=== PATIENT | female | born 1985 | race Caucasian/White ===

== ENCOUNTER → 2018-05-22 11:14 | Outpatient (CLI) | payer OTHER, SELFPAY ==
[2018-05-22 15:28] LABS: Absolute Lymphocyte Count 2.14 X10^3/ul (0.83-4.51); Absolute Neutrophil Count 4.7 X10^3/uL (2.0-7.7); Basophil# 0.01 X10^3/uL; Basophil% 0.1 % (0-1); Eosinophil# 0.08 X10^3/uL; Eosinophils% 1.1 % (0-5); Hematocrit 39.5 % (37-47); Hemoglobin 12.4 g/dl (12.0-15.0); Lymphocyte # 2.14 X10^3/ul (4.0); Lymphocyte % 29.6 % (19-41); Mean Corp Hgb Conc 31.4 g/gl (32-36); Mean Corpuscular Hgb 25.5 pg (27.0-32.0); Mean Corpuscular Volume 81.1 fL (81-99); Mean Platelet Vol. 10.8 fl (6.2-12.0); Monocyte# 0.32 X10^3/uL; Monocyte% 4.4 % (0-10); Neutrophil # 4.65 X10^3/uL (2.7-7.7); Neutrophil % 64.5 % (47-70); Platelet Count 238 K/mm3 (150-450); RBC Distribution Width SD 46.7 fl (35.1-43.9); Red Blood Count 4.87 M/mm3 (4.2-5.4); White Blood Count 7.2 K/mm3 (4.4-11.0)
[2018-05-22 15:36] LABS: POSITIVE COUNT NO; POSITIVE DIFFERENTIAL NO; POSITIVE MORPHOLOGY NO
[2018-05-22 15:44] LABS: ALB/GLOB Ratio 0.8 RATIO (0.9-2.4); AST(SGOT) 24 U/L (15-37); Alanine Aminotransfer ALT/SGPT 32 U/L (13-56); Albumin, Serum 3.4 g/dL (3.2-5.0); Alkaline Phosphatase 60 U/L (45-117); Anion Gap 10 (5-15); BUN 9 mg/dL (7-18); BUN/Creat Ratio 9.8 RATIO (10-20); Calcium,Total 8.3 mg/dL (8.5-10.1); Chloride 107 mmol/L (98-107); Creatinine, Serum 0.92 mg/dL (0.55-1.02); EST Glomerular Filtration Rate 76 mL/min (>60); Est Glom Filt Rate - Afr Amer 92 mL/min (>60); Globulin 4.3 g/dL (2.2-4.2); Glucose 85 mg/dL (74-106); Potassium 3.8 mmol/L (3.5-5.1); Protein, Total 7.7 g/dL (6.4-8.2); Sodium Level 140 mmol/L (136-145); T4 Free Direct 1.12 ng/dL (0.76-1.46); Thyroid Stim Hormone (TSH) 1.33 uIU/mL (0.358-3.74)
== END ==
PROVIDERS: Family Provider Family Medicine; PCP Family Medicine; Visit Provider Family Medicine
DX: R53.83 Other fatigue (principal); R06.00 Dyspnea, unspecified; R60.9 Edema, unspecified
CPT/HCPCS: 36415; 80053; 84439; 84443; 85025

== ENCOUNTER 2018-09-07 17:50 | Emergency (ER) | payer OTHER, SELFPAY ==
[2018-09-07 17:51] VITALS: BP 154/78; PULSE 95; RESP 18; TEMP 36.1; O2SAT 99; BMI 44.2
--- NOTE | 2018-09-07 19:45 | ED.VISSUMM ---
- ER Visit Summary Date of Service: 09/07/18 Chief Complaint: Vaginal bleeding History of Present Illness: The patient is a 33 F Ab0. States she is about 5 weeks . Patient states that she was diagnosed within the last month or so. He had some vaginal spotting. Was seen by her GUITAR INSTRUCTOR and [facility]. She was given RhoGam at her GUITAR INSTRUCTOR's office. She is Rh-. States she is having slightly more bleeding now. Small clots. She is never had a miscarriage. She denies any significant pain. They are also treating her for possible UTI but she has not gotten the antibiotics filled yet. She denies any fever. She denies any discharge. She states that the initial ultrasound showed a sac and the quant was too low to tell. Physical Examination: Very well-appearing young female. Vital signs are stable. She is afebrile. She is in no distress. H EENT exam unremarkable. Neck nontender. Lungs clear to auscultation bilaterally. Heart regular rhythm no murmur. Abdomen obese but soft. Nontender nondistended normal bowel sounds no peritoneal signs. Extremities moves all 4. Neurovascularly she is intact. Calves are nontender without edema or cords. Neurologically she is awake alert with no focal motor deficits. Test Results: Prior labs showed blood type a negative. Quant today was 965. Previously it was 740 and before that it was around 220. The prior quantitative hCG is 740 was 3 days ago. It is increasing but very slowly. With a quant of 965 more than likely the ultrasound will still be indeterminant. Emergency Department Course and Treatment: Patient had recent pelvic exam and defers tonight. She is really not having any significant pain whatsoever. She has a scheduled appointment with her GUITAR INSTRUCTOR on Monday. They need to repeat her quant once he gets 1500 or more they can repeat the ultrasound. She is already been treated with RhoGam this week. They have still not ruled out the possibility of an ectopic versus an early versus threatened miscarriage. Treatment Plan: Follow-up with her GUITAR INSTRUCTOR on Monday. Disposition: Discharge Impression: Vaginal bleeding First trimester Rh- already treated with RhoGam by her GUITAR INSTRUCTOR's office. This note was generated with [employer] software. It may contain incorrect words, spelling, and punctuation that were not noted in review of the chart prior to signing ED Disposition - Plan for ED Patient: Chief Complaint: Vag Bld, Preg Referrals: Haris Foster MD [NON-STAFF] -
--- NOTE | 2018-09-07 19:48 | ED.DCSUM_ITS ---
- ER Visit Summary Date of Service: 09/07/18 Chief Complaint: Vaginal bleeding History of Present Illness: The patient is a 33 F Ab0. States she is about 5 weeks . Patient states that she was diagnosed within the last month or so. He had some vaginal spotting. Was seen by her MANAGER OF APPLICATIONS DEVELOPMENT and [facility]. She was given RhoGam at her MANAGER OF APPLICATIONS DEVELOPMENT's office. She is Rh-. States she is having slightly more bleeding now. Small clots. She is never had a miscarriage. She denies any significant pain. They are also treating her for possible UTI but she has not gotten the antibiotics filled yet. She denies any fever. She denies any discharge. She states that the initial ultrasound showed a sac and the quant was too low to tell. Physical Examination: Very well-appearing young female. Vital signs are stable. She is afebrile. She is in no distress. H EENT exam unremarkable. Neck nontender. Lungs clear to auscultation bilaterally. Heart regular rhythm no murmur. Abdomen obese but soft. Nontender nondistended normal bowel sounds no peritoneal signs. Extremities moves all 4. Neurovascularly she is intact. Calves are nontender without edema or cords. Neurologically she is awake alert with no focal motor deficits. Test Results: Prior labs showed blood type a negative. Quant today was 965. Previously it was 740 and before that it was around 220. The prior quantitative hCG is 740 was 3 days ago. It is increasing but very slowly. With a quant of 965 more than likely the ultrasound will still be indeterminant. Emergency Department Course and Treatment: Patient had recent pelvic exam and defers tonight. She is really not having any significant pain whatsoever. She has a scheduled appointment with her MANAGER OF APPLICATIONS DEVELOPMENT on Monday. They need to repeat her quant once he gets 1500 or more they can repeat the ultrasound. She is already been treated with RhoGam this week. They have still not ruled out the possibility of an ectopic versus an early versus threatened miscarriage. Treatment Plan: Follow-up with her MANAGER OF APPLICATIONS DEVELOPMENT on Monday. Disposition: Discharge Impression: Vaginal bleeding First trimester Rh- already treated with RhoGam by her MANAGER OF APPLICATIONS DEVELOPMENT's office. This note was generated with [employer] software. It may contain incorrect words, spelling, and punctuation that were not noted in review of the chart prior to signing ED Disposition - Plan for ED Patient: Chief Complaint: Vag Bld, Preg Referrals: Haris Foster MD [NON-STAFF] -
[2018-09-07 20:20] VITALS: BP 127/77; PULSE 90; RESP 18; TEMP 37.1; O2SAT 100
[2018-09-07 20:41] LABS: hCG Titer Quant., Serum 965 mIU/mL (<9 non-preg)
[2018-09-07 21:22] VITALS: BP 135/84; PULSE 74; RESP 16; TEMP 37.2; O2SAT 98
[2018-09-07 22:11] VITALS: PULSE 88; RESP 16; TEMP 37.1; O2SAT 99
[2018-09-07 23:08] VITALS: BP 124/68; PULSE 90; RESP 16; TEMP 37.2; O2SAT 97
[2018-09-07 23:22] VITALS: BP 129/77; PULSE 78; RESP 16; O2SAT 97
--- NOTE | 2018-09-07 23:24 | ED.DEP ---
ED Disposition - Plan for ED Patient: Disposition: Home or Assisted Living Chief Complaint: Vag Bld, Preg Additional Instructions: Follow-up with your INDUSTRIAL EQUIPMENT MECHANIC Dr. Baljit Gardner on Monday. Need to repeat your quantitative hCG and once that number is 1500 or higher they can repeat the ultrasound. Your diagnosis is still indeterminate. He could be having a normal early with some mild bleeding. This could be an early threatened miscarriage or could actually even be an ectopic but they will need to do further studies to determine a specific diagnosis.
== END 2018-09-07 23:45 | disposition home or self-care (01) ==
PROVIDERS: Emergency Provider Emergency Medicine; PCP Family Medicine
DX: O20.9 Hemorrhage in early pregnancy, unspecified (principal); O36.0110 Maternal care for anti-D [Rh] antibodies, first trimester, not applicable or unspecified; O99.511 Diseases of the respiratory system complicating pregnancy, first trimester; J45.909 Unspecified asthma, uncomplicated; Z3A.01 Less than 8 weeks gestation of pregnancy
CPT/HCPCS: 84702; 99282

== ENCOUNTER 2024-01-15 18:39 | Emergency (ER) | payer OTHER, SELFPAY ==
[2024-01-15 18:40] VITALS: BP 145/87; PULSE 98; RESP 18; TEMP 36.6; O2SAT 100; BMI 45.7
--- NOTE | 2024-01-15 18:50 | EDS_ITS ---
HPI History of Present Illness Chief Complaint: Lower Extremity Injury Narrative Narrative: 38-year-old female who denies significant past medical history states about 2 to 3 weeks ago she sustained an injury to her left foot. She was at home trying to step over her son's bicycle that was at the bottom of the stairs. She thought she had cleared it, but her left foot got caught on it, and she hyperflexed her forefoot. She complains of pain at the base of the fourth and fifth toes along the distal metatarsals. She has no ankle pain. She did not fall and hit her head. She states she went to an urgent care where they performed x-rays and told her that her x-rays were negative for fracture. As it has been 2 to 3 weeks, she is having continued pain that is worse with weightbearing and walking. [facility] Medical History (Updated 01/15/24 @ 19:25 by Paolo Akhtar MD) Carpal tunnel syndrome Ovarian cyst Home Medications albuterol sulfate 90 mcg/actuation aerosol inhaler (ProAir HFA) 1 - 2 puff inhalation Q4H PRN PRN Sob &/Or Wheezing 08/30/16 [History Last Taken Unknown] vits no.130-ferrous fum 27 mg iron-folic acid 800 mcg tablet ( Vitamin) 1 ea PO DAILY 09/07/18 [History Last Taken Unknown] Allergy/AdvReac Type Severity Reaction Status Date / Time No Known Allergies Allergy Verified 01/15/24 18:41 Surgical History (Updated 01/15/24 @ 19:01 by Ruben Jones) H/O: hysterectomy Social History Smoking Status: Never smoker ROS ROS ED ROS Narrative Patient complains of pain at the base of the fourth and fifth toes that is worse with weightbearing and walking and any sort of movement of her forefoot. She denies any ankle pain. No other complaints. EXAM Physical Exam Narrative Exam Narrative: Afebrile. Vital signs noted. Regular rate and rhythm. Lungs clear to auscultation bilaterally. Abdomen soft nontender with normal active bowel sounds. Mild tenderness to palpation along distal metatarsals on the left foot. Good capillary refill. Palpable dorsalis pedis pulse. No malleoli or tenderness. No injury about the ankle and above. Const Vital Signs: 01/15/24 18:40 Temperature 98 F Temperature Source Temporal Pulse Rate 98 Respiratory Rate 18 Blood Pressure 145/87 H Blood Pressure Mean 106 Pulse Ox 100 Oxygen Delivery Method Room Air MDM MDM MDM Narrative Medical decision making narrative: Concern is for previous foot fracture versus foot sprain. X-rays will be obtained of the left foot to look for signs of healing fractures as it has been 2 to 3 weeks. She will be placed in a postop shoe regardless and told to follow-up with podiatry. She states her family sees Dr. Bautista already and she would like to see him. X-rays of the left foot interpreted by myself independently in 3 views shows no evidence of acute fracture. I reviewed the radiology report which confirms my independent interpretation. She was placed in a postop shoe, she will continue [id number] medications and I do not feel narcotic pain medication is indicated. Follow with podiatry. Disposition is discharged home in stable condition. History & Record Review Discussion w/independent historian: Patient Radiography Diagnostic Testing: Clinical Impression(s) from Imaging Studies Foot X-Ray 01/15/24 18:54 IMPRESSION: No acute fracture or other significant bony pathology Electronically Signed: Jhon Velazquez MD at 19:17 EDT , Discharge Plan Triage Chief Complaint: Lower Extremity Injury ED Provider: Paolo Akhtar Dx/Rx/DC Orders Clinical Impression: Foot pain, left, Sprain of foot, left Instructions: ED Foot Sprain Prescriptions: No Action albuterol sulfate [ProAir HFA] 1 PUFF inhaler 1 - 2 puff inhalation Q4H PRN PRN (Reason: Sob &/Or Wheezing) vit no.[id number] [ Vitamin] 1 EACH tablet 1 ea PO DAILY Primary Care Provider: Darrian Dejesus Referrals: Darrian Dejesus DO [Primary Care Provider] - Remigio Bautista DPM [Med Staff - Active Staff] - As soon as possible Disposition Disposition: Home, Self Care
--- NOTE | 2024-01-15 18:54 | RAD_ITS ---
STUDY: X-RAY - LEFT FOOT CLINICAL: Female, 38 years old. Trauma, Pain TECHNIQUE: 3 view(s) of the foot. COMPARISON: None. FINDINGS: Normal talus, and tarsal bones. Small plantar calcaneal spur and posterior enthesophyte Normal visualized subtalar, talonavicular, calcaneocuboid, tarsal and tarsometatarsal articulations. Normal metatarsi. Normal metatarsophalangeal joint of the great toe. Normal tibial and fibular sesamoid bones. Normal interphalangeal joint of the great toe. Normal phalanges of the great toe. Normal second through fifth metatarsophalangeal joints. Normal interphalangeal joints and phalanges of the lesser toes. The soft tissue structures are unremarkable. RAD/Foot min 3 Views IMPRESSION: No acute fracture or other significant bony pathology Electronically Signed: Jhon Velazquez MD at 19:17 EDT Reading Location ID and State: [facility] / [place] Tel [phone], Service support ,
[2024-01-15 20:08] VITALS: BP 110/71; PULSE 67; RESP 12; TEMP 36.9; O2SAT 97
== END 2024-01-15 20:08 | disposition home or self-care (01) ==
PROVIDERS: Emergency Provider Emergency Medicine; PCP Family Medicine; Visit Provider Emergency Medicine
DX: S93.602A Unspecified sprain of left foot, initial encounter (principal); W23.0XXA Caught, crushed, jammed, or pinched between moving objects, initial encounter; Y92.008 Other place in unspecified non-institutional (private) residence as the place of occurrence of the external cause
CPT/HCPCS: 73630; 99283

== ENCOUNTER → 2025-07-24 | Outpatient (CLI) | payer SELFPAY ==
--- NOTE | 2025-07-24 09:00 | RAD_ITS ---
PROCEDURE: THORACIC SPINE 2 VIEWS 07/24/2025 REASON FOR EXAM: MID BACK TECHNIQUE: Procedure Code: [id number] Modality: DX Procedure: THORACIC SPINE 2 VIEWS FINDINGS: No evidence of acute fracture or dislocation. Vertebral body heights and intervertebral disc spaces are maintained. Normal alignment. RAD/Thoracic Spine 2 Views IMPRESSION: No significant abnormality. Reading Location: [id number]
== END | disposition home or self-care (01) ==
PROVIDERS: PCP Family Medicine; Referring Provider Family Medicine; Visit Provider Family Medicine
DX: M54.9 Dorsalgia, unspecified (principal)
CPT/HCPCS: 72070